=== PATIENT | female | born 2000 | race Caucasian/White ===

== ENCOUNTER 2021-07-23 18:39 | Emergency (ER) | payer OTHER ==
--- NOTE | 2021-07-23 21:12 | ER ---
Nurse's Notes [facility] Name: Arlene Rubin Age: 20 yrs Sex: Female : 2000 Arrival Date: 07/23/2021 Time: 18:43 Bed 19 Private MD: Diagnosis: Influenza B Presentation: 07/23 19:24 Chief complaint: Patient states: pt has had flu like symptoms for the past few days, bs2 started as sore throat, nasal drainage, cough, body aches nausea. Coronavirus screen: Vaccine status: Patient reports receiving the 2nd dose of the covid vaccine. Pfizer congestion, cough unrelated to allergies, nausea, runny nose, sore throat. Ebola Screen: No symptoms or risks identified at this time. Initial Sepsis Screen: Does the patient meet any 2 criteria? No. Patient's initial sepsis screen is negative. Does the patient have a suspected source of infection? No. Patient's initial sepsis screen is negative. Risk Assessment: Do you want to hurt yourself or someone else? Patient reports no desire to harm self or others. Onset of symptoms was July 17, 2021. 19:24 Method Of Arrival: Ambulatory bs2 19:24 Acuity: CONSUELO 4 bs2 Triage Assessment: 19:26 General: Appears in no apparent distress. comfortable, slender, well groomed, well bs2 developed, well nourished, Behavior is calm, cooperative, appropriate for age. Pain: Denies pain. 19:28 EENT: Reports nasal discharge that is watery. Neuro: No deficits noted. Cardiovascular: bs2 No deficits noted. Respiratory: Reports cough that is non-productive. GI: Reports nausea. : No signs and/or symptoms were reported regarding the genitourinary system. Derm: No signs and/or symptoms reported regarding the dermatologic system. Historical: - Allergies: 19:26 No Known Allergies; bs2 - Home Meds: 19:26 control [Active]; bs2 - PMHx: 19:26 None; bs2 - PSHx: 19:26 None; bs2 - Immunization history:: Adult Immunizations up to date, Flu vaccine is not up to date. It has been more than one year since last vaccine. - Social history:: Smoking status: Patient denies any tobacco usage or history of. Patient uses alcohol, occasionally. Screenin:29 Abuse screen: Denies threats or abuse. Denies injuries from another. Nutritional bs2 screening: No deficits noted. Tuberculosis screening: No symptoms or risk factors identified. Fall Risk None identified. Assessment: 19:29 General: Appears in no apparent distress. comfortable, slender, well groomed, well bs2 developed, well nourished, Behavior is calm, cooperative, appropriate for age. Pain: Denies pain. Neuro: No deficits noted. Cardiovascular: No deficits noted. Respiratory: Reports cough that is non-productive. GI: Reports nausea. : No signs and/or symptoms were reported regarding the genitourinary system. EENT: Reports nasal discharge that is watery. Vital Signs: 19:24 BP 120 / 75; Pulse 83; Resp 15; Temp 98.3(O); Pulse Ox 99% ; Weight 62.6 kg; Height 5 bs2 ft. 1 in. (154.94 cm); Pain 0/10; 21:57 BP 115 / 83; Pulse 82; Resp 15; Temp 98.6; Pulse Ox 100% ; Pain 0/10; bs2 19:24 Body Mass Index 26.07 (62.60 kg, 154.94 cm) bs2 ED Course: 18:43 Patient arrived in ED. as 19:15 Cody Cagle, ISHMAEL is PHCP. pm1 19:15 Blake Alcantar MD is Attending Physician. pm1 19:19 Rosey Boss, CARLA is Primary Nurse. bs2 19:26 Triage completed. bs2 19:28 Arm band placed on right wrist. bs2 19:29 Patient has correct armband on for positive identification. Placed in gown. Bed in low bs2 position. Call light in reach. Side rails up X 1. Pulse ox on. NIBP on. Warm blanket given. 19:29 COVID swab sent to lab. Flu and/or RSV swab sent to lab. bs2 19:59 Chest Single View XRAY Sent. bs2 19:59 COVID-19 (Coronavirus) Document "Date of Onset" if Symptomatic Sent. bs2 19:59 Flu Sent. bs2 19:59 SARS-COV-2 RT PCR Sent. bs2 19:59 Strep Sent. bs2 20:04 Chest Single View XRAY In Process Unspecified. EDMS 21:58 No provider procedures requiring assistance completed. Patient did not have IV access bs2 during this emergency room visit. Administered Medications: No medications were administered Outcome: 21:12 Discharge ordered by MD. pm1 21:58 Discharged to home ambulatory. bs2 21:58 Condition: stable 21:58 Discharge instructions given to patient, Instructed on discharge instructions, follow up and referral plans. Demonstrated understanding of instructions, follow-up care. 21:59 Patient left the ED. bs2 Signatures: Dispatcher [employer] Chantal Hernandez Patrick, NP VASCULAR TECHNOLOGIST SONOGRAPHER pm1 Rosey Boss, RN RN bs2 Corrections: (The following items were deleted from the chart) 19:27 19:26 Home Meds: None; bs2 bs2
--- NOTE | 2021-07-23 21:12 | EDPHYS ---
Physician Documentation [facility] Name: Arlene Rubin Age: 20 yrs Sex: Female : 2000 Arrival Date: 07/23/2021 Time: 18:43 Bed 19 Private MD: ED Physician Blake Alcantar HPI: 07/23 20:45 This 20 yrs old Female presents to ER via Ambulatory with complaints of Cough.pm1 20:45 The patient or guardian reports cough, with no sputum. Onset: The symptoms/episode pm1 began/occurred 5 day(s) ago. Severity of symptoms: in the emergency department the symptoms are actually worse. Modifying factors: The symptoms are alleviated by nothing, the symptoms are aggravated by nothing. Associated signs and symptoms: Pertinent positives: chest pain, with cough, sore throat, Nasal congestion with drainage, Pertinent negatives: diarrhea, vomiting, Shortness of breath. The patient has not experienced similar symptoms in the past. The patient has not recently seen a physician. Historical: - Allergies: 19:26 No Known Allergies; bs2 - Home Meds: 19:26 control [Active]; bs2 - PMHx: 19:26 None; bs2 - PSHx: 19:26 None; bs2 - Immunization history:: Adult Immunizations up to date, Flu vaccine is not up to date. It has been more than one year since last vaccine. - Social history:: Smoking status: Patient denies any tobacco usage or history of. Patient uses alcohol, occasionally. ROS: 20:45 Constitutional: Negative for fever, chills, and weight loss. pm1 20:45 Cardiovascular: Negative for chest pain, palpitations, and edema. 20:45 MS/Extremity: Negative for injury and deformity, Skin: Negative for injury, rash, and discoloration, Neuro: Negative for headache, weakness, numbness, tingling, and seizure. 20:45 ENT: Positive for sinus congestion, sore throat, Negative for ear pain. 20:45 Respiratory: Positive for cough, shortness of breath. 20:45 Abdomen/GI: Negative for abdominal pain, nausea, vomiting, and diarrhea. 20:45 All other systems are negative. Exam: 20:45 Constitutional: This is a well developed, well nourished patient who is awake, alert, pm1 and in no acute distress. Head/Face: Normocephalic, atraumatic. 20:45 Skin: Warm, dry with normal turgor. Normal color with no rashes, no lesions, and no evidence of cellulitis. MS/ Extremity: Pulses equal, no cyanosis. Neurovascular intact. Full, normal range of motion. 20:45 Eyes: Exam is negative for acute changes, Sclera: no acute changes, icterus, is not appreciated. 20:45 ENT: External ear(s): are unremarkable, Ear canal(s): no acute changes, TM's: no acute changes, Posterior pharynx: Tonsils: bilaterally enlarged, with erythema, no exudate, no ulcerations, erythema, that is mild. 20:45 Cardiovascular: Exam negative for acute changes, Rate: normal, Rhythm: regular, Pulses: no pulse deficits are appreciated. 20:45 Respiratory: Exam negative for acute changes, respiratory distress, shortness of breath, Breath sounds: are clear throughout. Vital Signs: 19:24 BP 120 / 75; Pulse 83; Resp 15; Temp 98.3(O); Pulse Ox 99% ; Weight 62.6 kg; Height 5 bs2 ft. 1 in. (154.94 cm); Pain 0/10; 21:57 BP 115 / 83; Pulse 82; Resp 15; Temp 98.6; Pulse Ox 100% ; Pain 0/10; bs2 19:24 Body Mass Index 26.07 (62.60 kg, 154.94 cm) bs2 MDM: 19:20 Patient medically screened. [facility] 20:50 Data reviewed: vital signs. Data interpreted: Pulse oximetry: on room air is 99 %. pm1 Interpretation: normal. 21:09 Counseling: I had a detailed discussion with the patient and/or guardian regarding: the pm1 historical points, exam findings, and any diagnostic results supporting the discharge/admit diagnosis, lab results, radiology results, the need for outpatient follow up, a family practitioner, to return to the emergency department if symptoms worsen or persist or if there are any questions or concerns that arise at home. 21:12 ED course: Onset of symptoms greater than 48 hours, therefore patient not a candidate pm1 for Tamiflu. 07/23 19:24 Order name: COVID-19 (Coronavirus) Document "Date of Onset" if Symptomatic pm1 07/23 19:24 Order name: Flu; Complete Time: 20:42 pm1 07/23 19:37 Order name: Strep; Complete Time: 20:42 pm1 07/23 19:57 Order name: SARS-COV-2 RT PCR; Complete Time: 21:08 EDMS 07/23 20:29 Order name: Throat Culture EDMS 07/23 19:24 Order name: Chest Single View XRAY; Complete Time: 22:31 pm1 Administered Medications: No medications were administered Disposition: 07/24 16:23 Co-signature as Attending Physician, Blake Alcantar MD I agree with the assessment and stacy plan of care. Disposition Summary: 07/23/21 21:12 Discharge Ordered Location: Home pm1 Problem: new pm1 Symptoms: have improved pm1 Condition: Stable pm1 Diagnosis - Influenza B pm1 Followup: pm1 - With: Emergency Department - When: As needed - Reason: Worsening of condition Followup: pm1 - With: Private Physician - When: 2 - 3 days - Reason: Recheck today's complaints, Continuance of care, Re-evaluation by your physician Discharge Instructions: - Discharge Summary Sheet pm1 - Influenza, Adult pm1 Forms: - Medication Reconciliation Form pm1 - Thank You Letter pm1 - Antibiotic Education pm1 - Prescription Opioid Use pm1 Signatures: Dispatcher [employer] EDMS Blake Alcantar MD MD cha Marinas, Patrick, ISHMAEL RESORT KEEPER pm1 Rsoey Boss, RN RN bs2 Corrections: (The following items were deleted from the chart) 07/23 19:27 19:26 Home Meds: None; bs2 bs2 19:57 19:25 CORONAVIRUS ordered. [facility]
--- NOTE | 2021-07-23 21:47 | RAD REPORT ---
EXAM DESCRIPTION: RAD - Chest Single View - 07/23/2021 8:04 pm CLINICAL HISTORY: COUGH COMPARISON: July 2018 TECHNIQUE: AP portable chest image was obtained 07/23/2021 8:04 pm . FINDINGS: Lungs are clear. Heart and vasculature are normal. No measurable pleural effusion and no p neumothorax. No acute bony abnormality seen. No acute aortic findings suspected. IMPRESSION: No acute cardiopulmonary process. No significant change from comparison study.
[2021-07-23 22:21] VITALS: BP 115/83; TEMP 98.6; O2SAT 100
== END 2021-07-23 21:59 | disposition home or self-care (01) ==
LOC: ER 18:39
DX: J10.1 Influenza due to other identified influenza virus with other respiratory manifestations (principal); Z20.822 Contact with and (suspected) exposure to COVID-19
CPT/HCPCS: 87070; 87081; 87804 ×2; 71045; 99283; U0003